=== PATIENT | female | born 1965 | race Two or more races ===

== ENCOUNTER 2018-07-23 09:17 | Outpatient (CLI) | payer OTHER | END 2018-07-23 09:23 | disposition home or self-care (01) | LOC: MRI 09:17 | DX: M75.100 Unspecified rotator cuff tear or rupture of unspecified shoulder, not specified as traumatic (principal); S43.90XA Sprain of unspecified parts of unspecified shoulder girdle, initial encounter | CPT/HCPCS: 73221 ==